=== PATIENT | female | born 1950 | race Caucasian/White ===

== ENCOUNTER → 2020-02-17 | Outpatient (CLI) | payer OTHER ==
[~2020-02-17] MED LIST: NICOTINE TRANSD21 M1; ZESTRIL5 MG PO
== END ==
LOC: PET 14:15
DX: R91.8 Other nonspecific abnormal finding of lung field (principal); J98.11 Atelectasis; I70.0 Atherosclerosis of aorta; M41.84 Other forms of scoliosis, thoracic region; N28.1 Cyst of kidney, acquired; Z96.89 Presence of other specified functional implants

== ENCOUNTER → 2020-02-18 | Outpatient (CLI) | payer OTHER ==
[~2020-02-18] VITALS: Ht 162.6 cm; Wt 69.4 kg
[2020-02-18] VITALS (19 sets, daily range): BP systolic 11–153; BP diastolic 47–70
[2020-02-18 14:09] LABS: HEMOGLOBIN 13.3 gm/dL (12.0-15.0); MCH 28.7 pg (26.0-34.0); MCHC 33.2 g/dL (28.0-37.0); MCV 86.2 fL (80.0-100.0); RBC 4.64 mil/uL (4.20-5.00); RDW 14.7 % (10.5-14.5); WBC 10.1 thou/uL (4.0-11.0)
[2020-02-18 14:18] LABS: CALCIUM 9.1 mg/dL (8.5-10.1); POTASSIUM 4.1 mmol/L (3.5-5.1)
[2020-02-18 14:21] LABS: APTT 32.4 Seconds (24.5-32.8); INR 1.1
--- NOTE | 2020-04-06 16:06 | PATH ---
[facility] [address] [place] [address] PATHOLOGY RPT PROCEDURE Name: PATSY ABURTO Room #: REG [facility].#: [id number] Admission: 02/18/20 Date of : 54 Discharge: Report #: [id number] Path Case #: [id number] LCA Accession Number: [id number] . 01 Material submitted: . lung - LEFT LUNG MASS CT BIOPSY. Modifiers: left . 01 Clinical history: . None provided . 02 Diagnosis: Lung, left lung mass, CT guided needle core biopsy: - INVASIVE MODERATELY DIFFERENTIATED ADENOCARCINOMA IN A SCLEROTIC BACKGROUND. LBQ 02/22/2020 1237 Local . 02 Comment: Examination shows a sclerotic needle core biopsy of the lung intervened by scattered rare malignant appearing gland-like structures. Properly controlled immunohistochemical stains are performed. The malignant cells show strong nuclear reactivity with TTF-1, and granular reactivity with napsin-A. The cells are non-reactive to p40 as well as p63. Findings are consistent with an adenocarcinoma. . Co-review: Third Steel Pourer slides by Dr. Paula Mahmood (level 2 of all blocks). . Findings of this case are communicated to Dr. Logan Bailon at approximately 12:15 p.m. on 02/22/2020. (IUV/db; 02/22/2020) . 02 Addendum: . Special studies report received from [facility], [address] [place] [address], [address], [place], [address], on case [id number], labeled with their number [id number], dated 04/04/2020. . Fluorescence in situ Hybridization (FISH) Report TargetGene Analysis . RESULT: Negative for ROS1 gene rearrangement . Specimen Type: Tissue, Left Lung . Indication for Study: Adenocarcinoma . INTERPRETATION: Fluorescence in situ hybridization (FISH) analysis was performed on this [address] [address] PATHOLOGY RPT PROCEDURE Name: PATSY ABURTO [facility] [id number] Admission: 02/18/20 Date of : 54 Discharge: Report #: [id number] Path Case #: [id number] patient's paraffin embedded tissue specimen using a dual color break apart DNA probes for ROS1 gene. . One hundred interphase nuclei were examined and no evidence of a ROS1 gene specific rearrangement (split signal pattern) was detected. . Genetic changes other than those assayed here cannot be ruled out on the basis of this testing. Correlation with clinical and other pathological findings is suggested for a complete interpretation of these results. . See report [id number] for further information. See report [id number] for further information. See report [id number] for further information. See Molecular report [id number] for further information. . The following TargetGene FISH analysis was performed on this patient's specimen: Probe Detection Parameters Result ISCN ROS1 (6q22) Detects a rearrangement Not Detected nuc manuel(3'ROS1,5'ROS1) of the ROS1 gene x2(3'ROS1 con 5'ROS1x2)(100) . Date specimen retrieved from storage: 03/29/2020 . at [facility]. Neha Brothers, PhD, [facility] Director of Clinical Cytogenetics . Methodology: The patient specimen is processed onto a glass slide. Fluorescent DNA probe(s) is(are) applied to the cells on the slide under conditions of denaturation followed by hybridization. Stringency washes are applied and the slide is subsequently counterstained. A minimum of 100 interphase nuclei are analyzed unless otherwise indicated above. . References: Rafael Pappas, Arias HALEY, Kasie SH, et al. ROS1 rearrangements define a unique molecular class of lung cancers. J Clin Oncol, 2012;30:863-70. . Kasie Carlisle-LILIANA, Tim Y-J, et al. Crizotinib in ROS1-rearranged haa-bdiaf-jgch lung cancer. N Engl J Med, 2014;371:1963-71 . Disclaimer This Test was performed by [employer]. at [address] [address], [place], [address]. [facility] is a business unit of [employer] a wholly-owned subsidiary of [employer]. [address] [address] PATHOLOGY RPT PROCEDURE Name: PATSY ABURTO Room #: REG CLCandice Dugan#: [id number] Admission: 02/18/20 Date of : 54 Discharge: Report #: [id number] Path Case #: [id number] . . This assay has not been validated on decalcified tissues. Results should be interpreted with caution if this specimen was decalcified given the likelihood of false negativity on decalcified specimens. . Any image(s) that accompany this report is/are a site safety representative image(s) only and should not be used to render a diagnosis. . This test was developed and its performance characteristics determined by [employer] It has not been cleared or approved by the Food and Drug Administration. . A complete copy of the report is on file. . Professional services performed by [employer]. at [address] [place] [address], [facility] [[email or web address] [address] [address]. Technical services performed by [employer]. at [address] [place] [address], [facility] [[email or web address] [address] [address]. . (IUV:amj 04/04/2020) . AZJ/04/04/2020 Addendum Electronically Signed by Nicole Samuel MD, Pathologist Addendum #2: Special studies report received from [facility], [address] [place] [address], [facility] [address], on case [id number], labeled with their number [id number], dated 04/05/2020. . Fluorescence in situ Hybridization (FISH) Report ALK Analysis . RESULT: The ALK FISH probe failed to yield results. See interpretation. . Specimen Type: Tissue, Left Lung . Specimen Fixative Type: 10% Neutral Buffered Formalin . Indication for Study: Adenocarcinoma . INTERPRETATION: Fluorescence in situ hybridization (FISH) analysis was performed on paraffin embedded tissue using an ALK Break Apart DNA probe (FDA approved kit, [employer]) for the detection of rearrangements involving the ALK gene. . After repeat attempts, suboptimal hybridization prevented a thorough [facility] [address] [place] [address] PATHOLOGY RPT PROCEDURE Name: PATSY ABURTO [facility] #: [facility]#: [id number] Admission: 02/18/20 Date of : 54 Discharge: Report #: [id number] Path Case #: [id number] analysis. Therefore, no results were obtained. If further studies are indicated, please submit a new block for testing. . See FISH report [id number] for further information. See report [id number] for further information. See Molecular report [id number] for further information. . Date specimen retrieved from storage: 03/29/2020 . at [employer] [facility]. Neha Brothers, PhD, [facility] Director of Clinical Cytogenetics . Methodology: FISH was performed using ALK Break Apart FISH Probe Kit (FDA approved, [employer] A minimum of fifty invasive tumor cells were examined from areas that were delineated by a Pathologist from a corresponding H/E slide. A classification of each nucleus as positive or negative is recorded according to television specialist's instruction. The results are calculated as a percentage of the total positive cells to total cell analyzed. The normal cutoff was established as 15% using NSCLC FFPE tissue specimen. A negative result is reported when a sample with <15% rearranged cells and a positive result is defined when a sample shown greater than or equal to 15% cells with ALK gene rearrangements. A result is considered uninformative when there are less than 50 invasive tumor cells for FISH analysis. . Intended Use: The ALK Break Apart FISH Probe procedure is a qualitative test to detect rearrangements involving the ALK gene via fluorescence in situ hybridization (FISH) in FFPE NSCLC tissue specimens to aid in identifying those patients eligible for treatment with XALKOR (crizotinib). It is intended for use only on 10% neutral buffered formalin fixed paraffin-embedded NSCLC tissue. The optimal fixation time for tissue is 6-48 hours. The test is for prescription use only. . Disclaimer This Test was performed by [employer]. at [address] [place] [address], [facility]. [facility] is a business unit of [employer] a wholly-owned subsidiary of [employer]. . . This assay has not been validated on decalcified tissues. Results should be interpreted with caution if this specimen was decalcified given the likelihood of false negativity on decalcified specimens. [address] [address] PATHOLOGY RPT PROCEDURE Name: PATSY ABURTO Room #: REG CL [facility].#: [id number] Admission: 02/18/20 Date of : 54 Discharge: Report #: [id number] Path Case #: [id number] . Any image(s) that accompany this report is/are a site safety representative image(s) only and should not be used to render a diagnosis. . A complete copy of the report is on file. . Professional services performed by [employer]. at [facility], [place] [address]. Technical services performed by [employer]. at [facility] [address], [place] [address]. . (IUV:amj 04/06/2020) . AZJ/04/06/2020 Addendum Electronically Signed by Nicole Samuel MD, Pathologist Addendum #3: Special studies report received from [facility], [address] [place] [address], [address] [address], on case [id number], labeled with their number [id number], dated 04/06/2020. . EGFR Gene Mutation Analysis . INTERPRETATION: Negative for EGFR Mutation. . Please see additional comment. . Indication for Study: Adenocarcinoma . Specimen Site and Type: Paraffin-Embedded Tissue-Left Lung . Nucleotide Change: . Amino Acid Change: . Comments: No mutations were detected within the analyzed region of the EGFR gene in the sample provided for analysis. Less than 5% of non-small cell lung carcinoma patients without identifiable mutations are reported to be responsive to EGFR tyrosine kinase inhibitor therapies. Results should be interpreted in conjunction with clinical and other laboratory findings for the most accurate interpretation. . A subgroup of non-small cell lung cancer (NSCLC) patients has shown clinical responsiveness to the epidermal growth factor receptor (EGFR) inhibitors gefitinib (IRESSA) and erlotinib (Tarceva), including never smokers, individuals of ethnicity, and those with adenocarcinoma histology. In the majority of patients with highly responsive tumors, the [address] [address] PATHOLOGY RPT PROCEDURE Name: PATSY ABURTO Room #: [facility] [id number] Admission: 02/18/20 Date of : 54 Discharge: Report #: [id number] Path Case #: [id number] tumor contains a somatic mutation within the EGFR tyrosine kinase domain. The presence of a somatic EGFR mutation is significantly associated with response to gefitinib and erlotinib, and is strongly predictive of prolonged survival in NSCLC patients. . T790M mutation had been tested but was not detected in this submitted specimen. . This assay is able to detect 5% mutation in a background of wild-type DNA. . Additional comment: The sample submitted for analysis showed tumor cellularity less than 20% which is recommended for evaluation. Therefore, the results may not represent the true mutational status of this tumor. A follow up test is recommended if clinically indicated. . . See report [id number] for further information. See FISH report [id number] for further information. See report [id number] for further information. . . Date specimen retrieved from storage: 03/29/2020 . at [employer]. Jimmy Hodges, Ph.D., OXANA DABMG, DABCC, DLMcm, M([facility])cm, LESLIE([facility])cm . . Methodology: Genomic DNA was isolated from the provided tumor specimen. Exons 18 through 21 of the EGFR gene were subjected to SNaPShot multiplex PCR and primer extension for mutation detection. . Table: This Assay Can Detect the Following Mutations EGFR EGFR Codon Mutation Approximate % of all EGFR Exon Mutations 18 E709 E709K,E709Q 1% G719 G719S,G719C,G719A,G719D 2-5% 19 Insertions 18bp ins 1% Deletions 9,12,15,18,24 bp del 45% 20 Insertions 3,6,8,12 bp ins 5-10% S768 S768I 1-2% R776 R776C <1% T790 T790M 2% 21 L858 L858R 40% A859 A859T <1% [facility] [address] [place] [address] PATHOLOGY RPT PROCEDURE Name: DILSHAD ABURTONE Daryl Room #: [facility].#: [id number] Admission: 02/18/20 Date of : 54 Discharge: Report #: [id number] Path Case #: [id number] L861 L861Q,L861R 2-5% * This Assay does not distinguish between the 18bp insertion and deletions at nucleotide position 2235 and 2237 . References: 1. Jorje PA, Bang JA, Ilan BE. Epidermal Growth Factor Receptor Mutations in Gfd-Jdxzn-Zgll Lung Cancer: Implications for Treatment and Tumor Biology. J. Clin. Oncol. 2005; 23:9669-0472. 2. Monisha DE LA CRUZ et al. A Platform for Rapid Detection of Multiple Oncogenic Mutations with Relevance to Targeted Therapy in Esr-Twcjp-Mlmz Lung Cancer. J. Mol. Diagn. 2011;13(1):74-84. . Disclaimer This Test was performed by [employer] at [address], [address]. [facility] is a business unit of [employer] a wholly-owned subsidiary of [employer]. . . Any image(s) that accompany this report is/are a site safety representative image(s) only and should not be used to render a diagnosis. . This test was developed and its performance characteristics determined by [employer]. It has not been cleared or approved by the Food and Drug Administration. . A complete copy of the report is on file. . Professional services performed by [employer]. at [address], [place] [address]. Technical services performed by [employer]. at [address], [place] [address]. . (IUV:amj 04/06/2020) . AZJ/04/06/2020 Addendum Electronically Signed by Nicole Samuel MD, Pathologist . 02 Electronically signed: . Nicole Samuel MD, Pathologist NPI- [id number] . 01 Gross description: . The specimen is received in formalin, labeled "Patsy Aburto, left lung mass CT biopsy". Received are three needle cores of light mcdermott to black soft tissue ranging in length from 0.7 to 1.3 cm in length by 0.1 cm in diameter. The specimen is submitted entirely in cassette A1 through A3. [address] [address] PATHOLOGY RPT PROCEDURE Name: PATSY ABURTO Room #: REG CLI [facility].#: [id number] Admission: 02/18/20 Date of : 54 Discharge: Report #: [id number] Path Case #: [id number] (CAA; 02/19/2020) QAC/QAC 02/19/2020 1549 Local . 02 Pathologist provided ICD-10: C34.92 . 02 CPT . 799604, F63146, D60655 Performed at: [id number] [facility] [address], [place], [place] [id number] MD Bowen Aly MD Phone: [phone] Performed at: [address] [id number] MD Nicole Samuel MD Phone: [phone]
== END | disposition home or self-care (01) ==
LOC: ULTRA 11:35 → LAB 11:35 → CAT 11:35
PROVIDERS: ATTEND Pediatrics
DX: C34.92 Malignant neoplasm of unspecified part of left bronchus or lung (principal); R91.8 Other nonspecific abnormal finding of lung field; J90 Pleural effusion, not elsewhere classified; I10 Essential (primary) hypertension; Z98.890 Other specified postprocedural states; Z79.899 Other long term (current) drug therapy; Z11.59 Encounter for screening for other viral diseases; Z87.891 Personal history of nicotine dependence

== ENCOUNTER → 2020-03-14 | Outpatient (CLI) | payer OTHER | LOC: MRI 14:18 | PROVIDERS: ATTEND Internal Medicine Hematology & Oncology | DX: C34.12 Malignant neoplasm of upper lobe, left bronchus or lung (principal); C78.2 Secondary malignant neoplasm of pleura; J34.1 Cyst and mucocele of nose and nasal sinus; J34.2 Deviated nasal septum ==

== ENCOUNTER 2020-10-20 12:22 | Inpatient (IN) | payer OTHER ==
[~2020-10-20] VITALS: Ht 160 cm; Wt 54.4 kg
[2020-10-20 12:38] VITALS: BP 88/54
[2020-10-20] MEDS ORDERED: CVS SENNA PLUS1 EACH PO (13:28)
[2020-10-20] MEDS ORDERED: DEXAMETHASONE 44 M1 PO (13:28)
[2020-10-20] MEDS ORDERED: PERCOCET 5-3251 EACH PO (13:28)
[2020-10-20] MEDS ORDERED: TYLENOL PM EX-1 EACH PO (13:28)
[2020-10-20 13:46] LABS: HEMATOCRIT 35.5 % (37.0-47.0); HEMOGLOBIN 11.3 gm/dL (12.0-15.0); MCH 28.6 pg (26.0-34.0); MCHC 31.8 g/dL (28.0-37.0); MCV 89.8 fL (80.0-100.0); PLATELET COUNT 456 thou/uL (150-400); RBC 3.95 mil/uL (4.20-5.00); RDW 14.1 % (10.5-14.5); WBC 21.6 thou/uL (4.0-11.0)
[2020-10-20 13:54] LABS: CALCIUM 9.4 mg/dL (8.5-10.1); CREATININE 1.1 mg/dL (0.6-1.0); POTASSIUM 3.6 mmol/L (3.5-5.1)
[2020-10-20 13:57] LABS: ALBUMIN 3.2 g/dL (3.4-5.0); DIRECT BILIRUBIN 0.1 mg/dL (<0.1-0.2); TOTAL BILIRUBIN 0.4 mg/dL (0.2-1.0); TOTAL PROTEIN 6.7 g/dL (6.4-8.2)
--- NOTE | 2020-10-20 14:44 | NUR ---
PT'S HR ELEVATED TO 108 WITH STANDING TO GIVE URINE. THIS IS AFTER MORPHINE ADMINISTRATION. SHUKRI CORDOBA, NOTIFIED.
[2020-10-20 14:47] LABS: ABSOLUTE NEUTROPHILS 20.3 thou/uL (1.4-8.2); PLATELET ESTIMATE NORMAL
[2020-10-20 15:05] LABS: URINE BLOOD NEGATIVE (Negative); URINE CLARITY SL CLOUDY; URINE COLOR YELLOW; URINE GLUCOSE-RANDOM* NEGATIVE (Negative); URINE KETONES TRACE (Negative); URINE LEUKOCYTES-REFLEX TRACE (Negative); URINE NITRITE-REFLEX NEGATIVE (Negative); URINE PROTEIN (DIPSTICK) 2+ (Negative)
[2020-10-20 15:07] LABS: ICTOTEST (BILI CONFIRMATORY) Negative (Negative); URINE BILIRUBIN NEGATIVE (Negative)
[2020-10-20 15:28] LABS: HYALINE CASTS 0-3 Few /LPF (None Seen); MUCUS 0-3 Light strn/LPF (None Seen); SQUAMOUS >10 Many /LPF (0-3); URINE RBC None Seen /HPF (0-2); URINE WBC-REFLEX 6-15 Few /HPF (0-5); YEAST-REFLEX Present (None Seen)
[2020-10-20 15:29] LABS: AMORPHOUS URATES Moderate /LPF (None Seen); BACTERIA-REFLEX 1-9 Few /HPF (None Seen)
[2020-10-21 03:53] VITALS: BP 106/57
[2020-10-21 06:14] LABS: ABSOLUTE NEUTROPHILS 10.2 thou/uL (1.4-8.2); BASOPHILS 0.4 % (0.0-2.0); EOSINOPHILS 0.6 % (0.0-3.0); HEMATOCRIT 30.2 % (37.0-47.0); HEMOGLOBIN 9.9 gm/dL (12.0-15.0); LYMPHOCYTES 7.1 % (24.0-44.0); MCH 29.3 pg (26.0-34.0); MCHC 32.8 g/dL (28.0-37.0); MCV 89.5 fL (80.0-100.0); MONOCYTES 8.6 % (1.0-8.0); POLYS 83.3 % (36.0-66.0); RBC 3.37 mil/uL (4.20-5.00); RDW 14.4 % (10.5-14.5); WBC 12.2 thou/uL (4.0-11.0)
[2020-10-21 06:17] LABS: PLATELET COUNT 320 thou/uL (150-400)
[2020-10-21 06:38] LABS: CREATININE 0.8 mg/dL (0.6-1.0); MAGNESIUM 1.8 mg/dL (1.8-2.4); POTASSIUM 4.3 mmol/L (3.5-5.1)
--- NOTE | 2020-10-21 08:12 | NUR ---
RETURNED FROM RADIOLOGY US, GI REMAINS AT BEDSIDE TO UPDATE PLAN OF CARE
[2020-10-21 08:33] LABS: CLARITY TURBID; COLOR DARK RED; TOTAL VOLUME 62 mL
[2020-10-21 08:54] LABS: BF NUCLEATED CELLS 6437 /mm3; BF RBC 1279929 /mm3
[2020-10-21 09:47] LABS: BF MACROPHAGE 24 %; BF NEUTROPHILS 55 %
[2020-10-21 11:17] LABS: SOURCE ABDOMINAL
[2020-10-21 16:37] VITALS: BP 132/67
--- NOTE | 2020-10-21 17:35 | NUR ---
70-year-old female with past medical history known for lung cancer with mets to liver, spleen, stomach currently on palliative care since May 2020, tobacco use, chronic constipation, history of pleural effusion status post thoracentesis, kidney cysts. Patient presented to [facility] with complaint of intermittent abdominal pain, feeling of fullness, nausea over the last week progressively gotten worse. The patient has been admitted to a hospitalist with Sepsis, possible UT, Abd pain, Mild renal failure, chronic constipation, hx of pleural effusion, and tobacco use. PCR COVID Negative in ED. Hematology has been consulted. Son Bennett Jorgensen is listed as next of kin and notification libertarian at [phone]. NOTE: Patient is listed as A&O x4. CM to follow for discharge needs.
[2020-10-21] MEDS ORDERED: ROXICODONE5 M2 PO (19:57)
--- NOTE | 2020-10-21 19:58 | NUR ---
Admitted per ER with hx of severe abdominal pain, acites, stage 4 L lung adenocarcinoma with metatastisis to liver, spleen and stomach. Thorancentisis done in ER, pressure drsg to R chest. Dxed in 02/23, started on pallative care in 05/26. Reports losing approximately 40# in 6 months d/t lack of appetite, was started on decadron last week. Also has hx of HTN, kidney cysts and pleural effussions. Alert and orientated X4. States she did feel like going to sleep and not waking up d/t extreme pain when she came to ER yesterday but that is now resolved. Calm, cooperative, compliant, interactive. Breath sounds decreased significantly on L, clear on R with good aeration. Slight supracostal retractions is only s/o distress, states she occassionally becomes short of breath. Reg HR auscultated. Color pale pink with brisk capillary refill and palpable peripheral pulses. NS infusing at 75 cc/hr per L wrist, site soft and flat, drsg intact. Urinating per toilet. Active bowel sounds over soft, rounded abdomen. States last BM was yesterday. Son at bedside, appropriate questions and concerns.
--- NOTE | 2020-10-22 04:05 | NUR ---
Pt. rested quietly at intervals during the night when checked on during frequent rounds. She ambulates to the bathroom with standby assistance. No c/o pain at this time.
[2020-10-22 07:02] LABS: HEMATOCRIT 27.3 % (37.0-47.0); HEMOGLOBIN 8.8 gm/dL (12.0-15.0); MCH 29.5 pg (26.0-34.0); MCHC 32.5 g/dL (28.0-37.0); RBC 2.99 mil/uL (4.20-5.00); RDW 14.3 % (10.5-14.5); WBC 14.2 thou/uL (4.0-11.0)
[2020-10-22 07:22] LABS: CALCIUM 9.2 mg/dL (8.5-10.1); CREATININE 0.7 mg/dL (0.6-1.0); POTASSIUM 4.2 mmol/L (3.5-5.1)
[2020-10-22 08:32] VITALS: BP 143/58
[2020-10-22 09:07] LABS: BODY FLUID PROTEIN 3.8 g/dL (())
[2020-10-22 14:30] VITALS: BP 127/93
--- NOTE | 2020-10-22 14:34 | NUR ---
Received awake on bed. Due medications given as prescribed, able to swallow meds w/o difficulty. On room air. Vital signs stable. On regular diet- pt with poor appetite; encouraged to eat and drink, offered snacks as well; no nausea, no vomiting and no abdominal pain noted. On MS, not on telemetry; no complains and signs of chest pain, crushing sensation and heaviness. Continent of bowel and bladder, able to go to the toilet with standby assist and gait belt. Falls bundle in place. With NS at 75cc/hr, infusing well at L FA. Complained of pain, due PRN pain meds given as prescribed. Visited by her son today. Assisted in ADLs. Pt seen and examined by Dr Martinez this AM, possible discharge tomorrow. To continue monitoring patient today.
[2020-10-22 19:19] VITALS: BP 129/66
--- NOTE | 2020-10-23 03:27 | NUR ---
Pt. rested quietly at intervals during the night when checked on during frequent rounds. She offers no complaints. Up to the bathroom with stand by assistance.
[2020-10-23 05:24] LABS: HEMATOCRIT 25.6 % (37.0-47.0); HEMOGLOBIN 8.3 gm/dL (12.0-15.0); MCH 29.2 pg (26.0-34.0); MCHC 32.4 g/dL (28.0-37.0); MCV 90.2 fL (80.0-100.0); RBC 2.84 mil/uL (4.20-5.00); RDW 14.4 % (10.5-14.5); WBC 14.4 thou/uL (4.0-11.0)
[2020-10-23 05:30] LABS: CALCIUM 9.3 mg/dL (8.5-10.1); CREATININE 0.7 mg/dL (0.6-1.0); POTASSIUM 3.9 mmol/L (3.5-5.1)
[2020-10-23 08:12] VITALS: BP 119/68
[2020-10-23] MEDS ORDERED: AUGMENTIN 875-1 EACH PO (10:47)
[2020-10-23 12:48] VITALS: BP 119/68
--- NOTE | 2020-10-23 13:36 | NUR ---
Assumed pt care this am, VS stable and pt is steady on her gait and is able to ambulate the room. Concerned that she has not had a bm, was advised to increase fluid intake. POC followed with no signs or verbalizations of distress noted. DC instructions and prescriptions given to the pt. IV removed, awaiting son to olive picker the pt.
--- NOTE | 2020-10-23 16:11 | NUR ---
Pt is now dc
--- NOTE | 2020-10-26 15:07 | PATH ---
[facility] [place] [address] PATHOLOGY RPT PROCEDURE Name: ANDRA ABURTO Room #: 459-P DIS IN M.R.#: [id number] Admission: 10/20/20 Date of : 54 Discharge: 10/23/20 Report #: [id number] Path Case #: [id number] Note [facility] Accession Number: [id number] TESTS RESULT FLAG UNITS REF RANGE LAB Clinician Provided Cytology Information No. of containers..01 Other (Miscellaneous) Source: [A] 01 ABDOMINAL FLUID DIAGNOSIS: [A] 02 ABDOMINAL FLUID POSITIVE FOR MALIGNANT CELLS. METASTATIC ADENOCARCINOMA IS PRESENT. FAVOR METASTATIC LUNG ADENOCARCINOMA. THIS INTERPRETATION INCLUDES EVALUATION OF A CELL BLOCK. Comment: Markedly atypical glands are present. Properly controlled immunohistochemical stains performed on the formalin fixed cell block show the cells strongly reactive to BerEP4 and TTF1. Scant cells reactive for B72.3 are noted. The atypical glands are nonreactive to calretinin, desmin and PAX8. Findings support the metastatic adenocarcinoma of lung origin. [place]: Dr. Jalil Dupree. Findings are conveyed to Dr. Daljit Martinez in the morning of 10/25/20. Pathologist ICD10: 02 R18.0 Signed out by: Rosey Samuel MD, Pathologist NPI- [id number] Performed by: Miroslava Duke, Panel Fitter ([facility]) Gross description: 01 25ML, RED, 1 TP 1 CB /LCS 10/21/2020 1428 Local FLAG LEGEND: L-Low Normal,H-High Normal,LL-Alert Low,HH-Alert High <-Panic Low,>-Panic High,A-Abnormal,AA-Critical Abnormal Performed at: [facility] [address] [place] [address] [address] [place] [address] Jalil Dupree MD, [address] [address] Nicole Samuel MD, [address] [address] PATHOLOGY RPT PROCEDURE Name: CRISELDAANDRA M Room #: 459-P [facility] IN M.R.#: [id number] Admission: 10/20/20 Date of : 54 Discharge: 10/23/20 Report #: [id number] Path Case #: [id number] Specimen Comment: A duplicate report has been generated due to demographic updates. Performed at: 01 [facility] [place] [address] [facility] [address], [place], [place] [id number] MD Jalil Dupree MD Phone: [phone]
--- NOTE | 2020-11-02 07:14 | HC ---
[facility] [place] [address] CONSULTATION Name: ANDRA ABURTO Room #: 459-P [facility] IN .R.#: [id number] Admission: 10/20/20 Attend Phys: Daljit Martinez MD Discharge: 10/23/20 Date of : 54 Report #: [id number] THIS REPORT FOR: cc: Shirley Guaman Christine L. DO McKittrick, Richard James MD ~ DATE OF SERVICE: 10/21/2020 REASON FOR CONSULTATION: History of adenocarcinoma of the left lung. HISTORY OF PRESENT ILLNESS: The patient is a 70-year-old female that I last saw on 04/27/2020. 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 The tumor was BRAF and EGFR negative. Other testing has not been able to be done because of insufficient cells. Unfortunately, at that time, she was diagnosed that she had evidence of stage 4 disease. We had initially talked about doing chemo immunotherapy and at that time, she wished to proceed with palliative care and comfort measures after discussion. Thus I have not seen her for about 6 months. She has been seen in the palliative care team with Dr. Alex Bolivar. The patient was admitted after about a week long history of progressive nausea, abdominal fullness and possible dysuria. No fevers. The patient also had had no vomiting, no shortness of air, no chest pain, no melena, no hematochezia, no unusual headaches. She does still have some left arm/shoulder pain. PAST MEDICAL HISTORY: Notable for the adenocarcinoma of the left lung with multiple pleural implants back when diagnosed in 02/2020. Past history is notable for the stage 4 cancer diagnosis, also COPD, history of smoking, stopped in 02/2020, history of hypertension, history of the pleural disease. SOCIAL HISTORY: Currently lives at home with family. Quit smoking in 02/2020. No significant alcohol, no street drugs. FAMILY HISTORY: Mother had thyroid disease. Father, prostate cancer. Paternal grandmother had migraines. MEDICATIONS: At this time currently include pantoprazole 20 daily, Senokot 1 tab daily, dexamethasone 4 mg daily, MiraLax daily, Lovenox 40 mg at bedtime, vancomycin q.12, oxycodone 1 tab q.6 p.r.n., Zofran p.r.n., IV fluids, fentanyl p.r.n., fluconazole 150 mg 1 time; Zosyn one dose, others to follow if desired; morphine p.r.n. PHYSICAL EXAMINATION: VITAL SIGNS: The patient's height is 5 feet 3 inches, 160 cm, weight 125 pounds or 56.7 kilograms, blood pressure 109/61, O2 sat 98%, respirations 18, pulse 86, [place] [address] CONSULTATION Name: ANDRA ABURTO Room #: 459-P [facility] IN M.R.#: [id number] Admission: 10/20/20 Attend Phys: Daljit Martinez MD Discharge: 10/23/20 Date of : 54 Report #: [id number] temperature 97.5. MOOD: Pleasant, alert, conversant. NEUROLOGIC: Speech and thought pattern normal. Moving extremities appropriately. Mentation appears to be normal. LUNGS: When listened to anteriorly, maybe have some slight dullness in the left base laterally. The patient is lying down at this time. HEART: Regular rate. LYMPHATICS: No enlarged lymph nodes in the supraclavicular, cervical, axillary or inguinal region. ABDOMEN: Mildly obese, not flat, not really distended. No definite masses, just a slight sluggish feeling. EXTREMITIES: Without clubbing, cyanosis or edema. SKIN: Appears to be intact. LABORATORY DATA: Here is notable for BUN of 27, creatinine of 0.8, hemoglobin 9.9, white count 12.2, and platelets 320. Chemistry is fairly normal. UA had greater than 10 squamous cells, 1-9 bacteria, 6-[address] scan of the abdomen showed a new ascites, some omental disease, splenic mass, which was new. Blood cultures currently negative. COVID PCR negative. ASSESSMENT AND PLAN: 1. Metastatic adenocarcinoma of the left lung, currently on palliative care. Depending upon how she feels after paracentesis, could consider talking to the patient about checking ROS1 and NTRK by [facility] as outpatient or can continue with comfort measures and palliative care. We will discuss with the patient next week once we see which direction she goes with the paracentesis. 2. Abdominal ascites. Recent scan shows new ascites and omental disease and splenic mass consistent with progressive disease. Note, there is a concern or question that the patient may have peritonitis, though symptomatically, this seems minimal. We will await culture and other tests results on cytology fluid. Continue antibiotics with Zosyn and vancomycin for now. 3. Mild dysuria. UA may be contaminant. Await cultures and may need to repeat. 4. Leukocytosis, mild, the patient begin dexamethasone last week and it could be from that. Note that her anorexia and nausea did see some improvement. 5. Left neck pain, she had been using tramadol, Tylenol and oxycodone, also dexamethasone. 6. Nausea and anorexia, slightly improved with dexamethasone. We will see if paracentesis helps. 7. Anemia. Follow serial hemoglobins, currently 9.9. [facility] [address] [place] [address] CONSULTATION Name: ANDRA ABURTO Room #: 459-P [facility] IN M.R.#: [id number] Admission: 10/20/20 Attend Phys: Daljit Martinez MD Discharge: 10/23/20 Date of : 54 Report #: [id number] 8. Chronic obstructive pulmonary disease, breathing well without need for extra oxygen at this time. Continue following. We will follow with you. <ELECTRONICALLY SIGNED> By: Flako Johnson MD 11/02/20 [id number] Flako Johnson MD /nt
== END 2020-10-23 16:20 | disposition home or self-care (01) | DRG 871 ==
LOC: ER 12:22 → EROBS 16:32 → 4W 10-21 16:54
PROVIDERS: Nurse Practitioner; ADMIT Hospitalist; ATTEND Hospitalist
PROC: 0W9G3ZZ Drainage of Peritoneal Cavity, Percutaneous Approach (ICD-10-PCS; principal; 2020-10-21)
DX: A41.9 Sepsis, unspecified organism (principal); N17.0 Acute kidney failure with tubular necrosis; R18.8 Other ascites; N39.0 Urinary tract infection, site not specified; C78.7 Secondary malignant neoplasm of liver and intrahepatic bile duct; C78.89 Secondary malignant neoplasm of other digestive organs; J90 Pleural effusion, not elsewhere classified; I10 Essential (primary) hypertension; K59.00 Constipation, unspecified; D64.9 Anemia, unspecified; J44.9 Chronic obstructive pulmonary disease, unspecified; Z51.5 Encounter for palliative care; Z20.822 Contact with and (suspected) exposure to COVID-19; F17.210 Nicotine dependence, cigarettes, uncomplicated; Z66 Do not resuscitate; Z79.899 Other long term (current) drug therapy; Z88.8 Allergy status to other drugs, medicaments and biological substances; Z85.118 Personal history of other malignant neoplasm of bronchus and lung
CPT/HCPCS: 10040